=== PATIENT | male | born 1955 | race Caucasian/White ===

== ENCOUNTER 2016-10-27 09:16 | Emergency (ER) | payer BC, OTHER ==
[2016-10-27 09:23] VITALS: PULSE 77; TEMP 98.5; BMI 29.9
[2016-10-27 09:51] VITALS: BP 166/102
[2016-10-27] MEDS ORDERED: KETOROLAC TROMETHAMINE 30 MG/1 ML VIAL IM ONE (10:18)
--- NOTE | 2016-10-27 10:22 | PDOC ---
History of Present Illness - General Chief Complaint: Back Pain Stated Complaint: LOWER BACK PAIN Time Seen by Provider: 10/27/16 10:04 History Source: Patient Exam Limitations: No Limitations - History of Present Illness Initial Comments: 10/27/16 10:18 61 yr male history of asthma, HTN (not on meds) presents with low back pain to the right side, buttock radiates to thigh with burning sensation to thigh. no urine or bowel dysfunction no abd pain or fever, pt denies trauma however worked in [employer] last week and pain started 3 days ago. Pain worse with walking, tool aleve and flexeril last night with no relief. Pt saw his PMD yesterday was given ibuprofen and flexeril and told to have xrays. Pt denies headache or dizzyness. 10/27/16 10:20 Past History - Past Medical History Allergies/Adverse Reactions: Allergies Allergy/AdvReac Type Severity Reaction Status Date / Time No Known Allergies Allergy Verified 10/27/16 09:22 Home Medications: Ambulatory Orders Oxycodone HCl/Acetaminophen [Percocet 5-325 mg Tablet] 1 - 2 tab PO Q6H PRN #15 tab MDD 8 10/27/16 Asthma: Yes HTN: Yes (not on meds) - Family Disease History Comment:: 10/27/16 10:20 unk - Psycho/Social/Smoking Cessation Hx Suicidal Ideation: No Smoking History: Never smoked Hx Alcohol Use: No Drug/Substance Use Hx: No Trauma Specific PMHX - Complaint Specific PMHX Arthritis: No Back Injury: No Neck Injury: No Hx Sacro Iliac Joint Dysfunction: No Review of Systems - Review of Systems Able to Perform ROS?: Yes Is the patient limited Congolese proficient: No Constitutional: No: Symptoms Reported HEENTM: No: Symptoms Reported Respiratory: No: Symptoms reported Cardiac (ROS): No: Symptoms Reported ABD/GI: No: Symptoms Reported : No: Symptoms Reported Musculoskeletal: Yes: See HPI, Back Pain *Physical Exam - Vital Signs Last Vital Signs Temp Pulse Resp BP Pulse Ox 98.5 F 77 20 166/102 98 10/27/16 09:20 10/27/16 09:20 10/27/16 09:20 10/27/16 09:51 10/27/16 09:20 - Physical Exam General Appearance: Yes: Nourished, Appropriately Dressed HEENT: positive: EOMI, KYLE, Normal ENT Inspection, TMs Normal, Pharynx Normal Neck: positive: Supple Respiratory/Chest: positive: Lungs Clear, Normal Breath Sounds Cardiovascular: positive: Regular Rhythm, Regular Rate Gastrointestinal/Abdominal: positive: Normal Bowel Sounds, Soft. negative: Tender Rectal Exam: positive: deferred Musculoskeletal: positive: Normal Inspection, Other (neg vetebral tenderness, tender to right buttock ). negative: CVA Tenderness, CVA Tenderness (R), CVA Tenderness (L), Vertebral Tenderness Extremity: positive: Normal Capillary Refill, Normal Inspection, Other (right leg SLR pain at 45 degrees ). negative: Swelling, Calf Tenderness Integumentary: positive: Normal Color, Dry, Warm Neurologic: positive: Fully Oriented, Alert, Normal Mood/Affect, Normal Response , Motor Strength 5/5 ED Treatment Course - RADIOLOGY Radiology Studies Ordered: Category Date Time Status SPINE-LUMBAR SACRAL [RAD] Stat Radiology 10/27/16 10:18 Ordered Medical Decision Making - Medical Decision Making 10/27/16 10:22 cc: low back pain to right buttock and thigh worse with walking no bowel or urine dysfunction no saddle anesthesia or abd pain or fever pt is able to dress himself and ambulate without diffuculty will give toradol, xray lower back follow with the orthopedist 10/27/16 10:45 *DC/Admit/Observation/Transfer Diagnosis at time of Disposition: Sciatic leg pain - Discharge Dispostion Disposition: HOME Condition at time of disposition: Good - Prescriptions Prescriptions: Oxycodone HCl/Acetaminophen [Percocet 5-325 mg Tablet] 1 - 2 tab PO Q6H PRN #15 tab MDD 8 PRN Reason: Severe Pain - Referrals Referrals: Lee Wilcox MD [Staff Physician] - - Patient Instructions Additional Instructions: take percocet for severe pain DO NOT DRIVE, OPERATE MACHINERY OR DRINK ALCOHOL WHILE TAKING THIS MEDICATION CONTINUE TO TAKE ibuprofen 800mg every 6-8hrs for pain apply ice to lower back every 2hrs for 15 minutes can help with pain follow up with the orthopedist in 3-5 days call today to make appointment return to ER for any worsening pain, urine or bowel dysfunction
[2016-10-27] MEDS ORDERED: KETOROLAC TROMETHAMINE 30 MG/1 ML VIAL ONE (10:23)
== END 2016-10-27 11:11 | disposition home or self-care (01) ==
LOC: JERFT 09:16
PROC: 3E0233Z Introduction of Anti-inflammatory into Muscle, Percutaneous Approach (ICD-10-PCS; principal; 2016-10-27)
DX: M54.31 Sciatica, right side (principal); J45.909 Unspecified asthma, uncomplicated
CPT/HCPCS: 72100-TC; 99281-25